=== PATIENT | male | born 1945 | race Caucasian/White ===

== ENCOUNTER 2022-07-16 14:40 | Emergency (ER) | payer OTHER, MEDICAID ==
[~2022-07-16] VITALS: Ht 175.3 cm; Wt 83.9 kg
--- NOTE | 2022-07-16 15:02 | NUR ---
DR DAVIS OUT TO TRIAGE ROOM FOR EVALUATION
[2022-07-16 15:50] VITALS: BP_SYST 139
--- NOTE | 2022-07-16 16:51 | NUR ---
BROUGHT BACK TO BED IN HALLWAY AND AWAITING ROMANA ORDERS
[2022-07-16] MEDS ORDERED: KETOROLAC TROMETHAMINE 30 MG VIAL IM ONE (17:00)
[2022-07-16] MEDS ORDERED: MECLIZINE HCL 25 MG TABLET (ANITVERT) PO ONE (17:00)
[2022-07-16] MEDS ORDERED: IBUP-1969 PO (17:03)
[2022-07-16] MEDS ORDERED: MECL-160 PO (17:03)
--- NOTE | 2022-07-16 17:13 | NUR ---
MEDICATED ORDERED, PT INSTRUCTED TO WAIT MINIMUM OF 15 MINUTES
--- NOTE | 2022-07-16 17:18 | NUR ---
Patient given written and verbal discharge instructions and verbalizes understanding. ER MD discussed with patient the results and treatment provided. Patient in stable condition. ID arm band removed. IV catheter removed intact and dressing applied, no active bleeding. Rx of ibuprophen given. Patient educated on pain management and to follow up with PMD. Pain Scale . Opportunity for questions provided and answered. Medication side effect fact sheet provided.
--- NOTE | 2022-07-16 17:29 | NUR ---
PT LEFT WITH , STEADY GAIT.
[2022-07-16 23:44] VITALS: BP_SYST 137
--- NOTE | 2022-07-16 23:46 | NUR ---
Patient given written and verbal discharge instructions and verbalizes understanding. ER MD discussed with patient the results and treatment provided. Patient in stable condition. ID arm band removed. Patient educated on pain management and to follow up with PMD. Pain Scale [0]. Opportunity for questions provided and answered. Medication side effect fact sheet provided.
== END 2022-07-16 23:44 | disposition home or self-care (01) ==
LOC: SED 14:40
DX: S09.90XA Unspecified injury of head, initial encounter (principal); F07.81 Postconcussional syndrome; R42 Dizziness and giddiness; R07.9 Chest pain, unspecified; Z79.899 Other long term (current) drug therapy; V89.2XXA Person injured in unspecified motor-vehicle accident, traffic, initial encounter; Y93.89 Activity, other specified; Y92.89 Other specified places as the place of occurrence of the external cause; Y99.8 Other external cause status
CPT/HCPCS: 99285; 70450; 76376; 96372; J8597; J1885